=== PATIENT | female | born 1965 | race Caucasian/White ===

== ENCOUNTER 2023-01-22 17:13 | Emergency (ER) | payer BC, MEDICAID ==
[2023-01-22 17:31] VITALS: BP 132/73; PULSE 89
[2023-01-22] MEDS ORDERED: cefTRIAXone 1 GM, Lidocaine 1% 2.1 ML IM ONE ×2 (17:34)
== END 2023-01-22 18:03 | disposition home or self-care (01) ==
LOC: VM.ED 17:13
DX: E11.621 Type 2 diabetes mellitus with foot ulcer (principal); L97.529 Non-pressure chronic ulcer of other part of left foot with unspecified severity; L03.032 Cellulitis of left toe; E11.42 Type 2 diabetes mellitus with diabetic polyneuropathy; Z79.82 Long term (current) use of aspirin; Z79.84 Long term (current) use of oral hypoglycemic drugs; Z88.5 Allergy status to narcotic agent; Z88.1 Allergy status to other antibiotic agents; Z88.8 Allergy status to other drugs, medicaments and biological substances
CPT/HCPCS: 96372; 99283; J0696; J3490